=== PATIENT | male | born 1970 | race American Indian/Alaskan Native ===

== ENCOUNTER 2017-08-24 06:56 | Emergency (ER) | payer BC ==
[2017-08-24 07:13] VITALS: TEMP 98.3; O2SAT 96
[2017-08-24] MEDS ORDERED: Sodium Chloride 0.9% 1,000 ML IV ONE ×2 (07:14→09:05)
--- NOTE | 2017-08-24 07:14 | C.PDOC ---
History Of Present Illness pt started to drink a few days ago for his birthday. 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 dull, burning midepigastric pain. Some nausea, no vomiting. Time Seen by Provider: 08/24/17 07:13 Chief Complaint (Nursing): Abdominal Pain History Per: Patient History/Exam Limitations: no limitations Onset/Duration Of Symptoms: Days Current Symptoms Are (Timing): Still Present Context: Other (alcohol) Severity: Moderate Pain Scale Rating Of: 5 Location Of Pain/Discomfort: Epigastric Radiation Of Pain To:: None Quality Of Discomfort: Dull, Burning Associated Symptoms: Nausea. denies: Fever, Chills, Vomiting Exacerbating Factors: denies: Cough Last Bowel Movement: Yesterday Recent travel outside of the [place]: No Additional History Per: Patient Past Medical History Reviewed: Historical Data, Nursing Documentation, Vital Signs Vital Signs: Last Vital Signs Temp 98.3 F 08/24/17 07:03 Pulse 68 08/24/17 09:30 Resp 18 08/24/17 09:30 BP 189/79 H 08/24/17 09:30 Pulse Ox 96 08/24/17 09:30 - Medical History PMH: Depression, HTN Denies: Diabetes, Hepatitis, HIV, Seizures, Sexually Transmitted Disease - [facility] Procedures ALCOHOL DETOXIFICATION (10/18/14) Family History: States: No Known Family Hx - Social History Hx Tobacco Use: No Hx Alcohol Use: Yes Hx Substance Use: Yes - Immunization History Hx Tetanus Toxoid Vaccination: No Hx Influenza Vaccination: No Hx Pneumococcal Vaccination: No Review Of Systems Constitutional: Negative for: Fever, Chills Eyes: Negative for: Redness ENT: Negative for: Throat Pain Cardiovascular: Negative for: Chest Pain Respiratory: Negative for: Shortness of Breath Gastrointestinal: Positive for: Nausea, Abdominal Pain. Negative for: Vomiting Genitourinary: Negative for: Dysuria Musculoskeletal: Negative for: Back Pain Skin: Negative for: Rash, Lesions Neurological: Positive for: Weakness Psych: Negative for: Anxiety Physical Exam - Physical Exam Appears: Non-toxic Skin: Warm, Dry Head: Normacephalic Eye(s): bilateral: Normal Inspection, PERRL, EOMI Oral Mucosa: Dry Neck: Supple Chest: Symmetrical Cardiovascular: Rhythm Regular Respiratory: No Rales, No Rhonchi, No Wheezing Gastrointestinal/Abdominal: Soft, Tenderness, Distention, No Guarding, No Rebound Back: No CVA Tenderness Extremity: Normal ROM Extremity: Bilateral: Atraumatic, Normal Color And Temperature, Normal ROM Pulses: Left Dorsalis Pedis: Normal, Right Dorsalis Pedis: Normal Neurological/Psych: Oriented x3, Normal Speech, Normal Cognition Gait: Steady ED Course And Treatment - Laboratory Results Result Diagrams: 08/24/17 08:17 08/24/17 08:17 O2 Sat by Pulse Oximetry: 96 Pulse Ox Interpretation: Normal Against Medical Advice - AMA Patient Left Against Medical Advice: The patient declines admission to the hospital and wishes to leave the Emergency Department. This action is against my medical advice. This decision was made with informed refusal. The patient was told that admission to the hospital is necessary. Explanation of the reasons why were discussed. The risks of leaving were explained to the patient and include, but are not limited to, worsening of known or currently unknown conditions, permanent disability and from undiagnosed or untreated conditions. The patient has the capacity to make this informed decision and understands my explanation of the current medical problem and risks of leaving. The patient voluntarily accepts these risks and signed an AMA form documenting our conversation. The patient was given the opportunity to ask questions and reconsider. The patient was encouraged to return to the Emergency Department at any time for further care. Disposition Counseled Patient/Family Regarding: Studies Performed, Diagnosis, Need For Followup - Disposition Referrals: Duglas Pruett DO [[facility]] - Disposition: HOME/ ROUTINE Disposition Time: 07:13 Condition: FAIR Prescriptions: Ondansetron ODT [Zofran ODT] 1 odt PO BID PRN #6 odt PRN Reason: Nausea/Vomiting Pantoprazole Sodium [Protonix] 20 mg PO DAILY #15 ect Instructions: Abdominal Pain (ED), Gastritis (DC), Abuse of Alcohol (ED) Forms: [employer] ([place]) - Clinical Impression Clinical Impression: Abdominal pain, Gastritis, Alcoholic gastritis
[2017-08-24] MEDS ORDERED: Sodium Chloride 0.9% 1,000 ML ONE ×2 (07:45→09:12)
[2017-08-24 08:23] LABS: BASO % 0.6 % (0.0-2.0); EOS # 0.1 K/uL (0.0-0.7); EOS % 2.6 % (0.0-4.0); HEMATOCRIT 45.6 % (35.0-51.0); LYMPH # 1.7 K/uL (1.0-4.3); LYMPH % 30.4 % (20.0-40.0); MEAN CELL VOLUME 80.1 fL (80.0-94.0); MEAN CORPUSCULAR HEMOGLOBIN 27.6 pg (27.0-31.0); MEAN CORPUSCULAR HGB CONC 34.5 g/dL (33.0-37.0); MEAN PLATELET VOLUME 8.3 fL (7.2-11.7); MONO # 0.4 K/uL (0.0-0.8); MONO % 7.7 % (0.0-10.0); NRBC % 0.2 % (0.0-2.0); RED CELL DISTRIBUTION WIDTH 14.1 % (11.5-14.5); WHITE BLOOD COUNT 5.5 K/uL (4.8-10.8)
[2017-08-24 08:56] LABS: CHLORIDE 97 mmol/L (98-107); POTASSIUM 4.8 mmol/L (3.6-5.2); SODIUM 135 mmol/L (132-148)
[2017-08-24 08:58] LABS: GFR AFRICAN-AMERICAN > 60
[2017-08-24 08:59] LABS: ALKALINE PHOSPHATASE 86 U/L (38-126); ALT/SGPT 62 U/L (21-72); AST/SGOT 108 U/L (17-59); BILIRUBIN,TOTAL 1.2 mg/dL (0.2-1.3); BLOOD UREA NITROGEN 13 mg/dL (9-20); CALCIUM 9.1 mg/dl (8.6-10.4); CARBON DIOXIDE 23 mmol/L (22-30); GLUCOSE,RANDOM 83 mg/dL (75-110); TOTAL PROTEIN 9.3 g/dL (6.3-8.3)
[2017-08-24 09:00] LABS: ALCOHOL SERUM 112 mg/dl (0-10)
[2017-08-24 09:09] LABS: RBC URINE 6 /hpf (0-3); URINE BILIRUBIN NEGATIVE (NEGATIVE); URINE BLOOD 1+ (NEGATIVE); URINE COLOR Yellow (YELLOW); URINE GLUCOSE (UA) NORMAL (Normal); URINE KETONE 1+ mg/dL (NEGATIVE); URINE LEUKOCYTE ESTERASE NEG Leu/uL (Negative); URINE PROTEIN 2+ mg/dL (NEGATIVE); URINE UROBILINOGEN NORMAL mg/dL (0.2-1.0); WBC URINE 1 /hpf (0-5)
[2017-08-24 09:31] VITALS: BP 189/79; PULSE 68; RESP 18
[2017-08-24] MEDS ORDERED: Iodixanol 320 MG/ML 100 ML BOTTLE IV ONE (10:16)
== END 2017-08-24 10:41 | disposition left against medical advice (07) ==
LOC: C.ER 06:56
DX: K29.20 Alcoholic gastritis without bleeding (principal); F10.10 Alcohol abuse, uncomplicated; Y90.5 Blood alcohol level of 100-119 mg/100 ml; R10.13 Epigastric pain
CPT/HCPCS: 80053; 81001; 83690; 85025; 96361; 96374; 96375; 99285; C9113; G0480; J1885; J2405; J7040

== ENCOUNTER 2018-12-14 18:44 | Outpatient (CLI) | payer BC | END 2018-12-14 18:45 | disposition home or self-care (01) | LOC: C.SLEEP 18:44 | DX: G47.33 Obstructive sleep apnea (adult) (pediatric) (principal) ==

== ENCOUNTER 2019-02-04 09:20 | Emergency (ER) | payer OTHER, BC ==
[2019-02-04 09:35] VITALS: BP 113/73; PULSE 77; RESP 18; TEMP 98.7; O2SAT 99
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
== END 2019-02-04 10:04 | disposition home or self-care (01) ==
LOC: C.ER 09:20
DX: S23.3XXA Sprain of ligaments of thoracic spine, initial encounter (principal); V79.50XA Passenger on bus injured in collision with unspecified motor vehicles in traffic accident, initial encounter